=== PATIENT | male | born 1985 | race Caucasian/White ===

== ENCOUNTER → 2017-01-03 | Outpatient (CLI) | payer MEDICAID ==
[~2017-01-03] MED LIST: Albuterol 0.083% 2.5 MG/3 ML Neb Soln NEB ONE
== END ==
LOC: MW.RT 09:46
PROVIDERS: ATTEND Surgery
DX: M79.641 Pain in right hand (principal); R05 Cough
CPT/HCPCS: 94060

== ENCOUNTER 2017-03-13 00:38 | Emergency (ER) | payer MEDICAID, OTHER ==
--- NOTE | 2017-03-13 00:59 | EDM.PDOC ---
ED HPI SEIZURE COMPLAINT - General Chief Complaint: Neurological Problem Stated Complaint: AMBULANCE Time Seen by Provider: 03/13/17 00:46 Source of Information: Reports: Patient History Limitations: Reports: No limitations - History of Present Illness INITIAL COMMENTS - FREE TEXT/NARRATIVE: HISTORY AND PHYSICAL: History of present illness: [31-year-old male with a history of seizure disorder but he is noncompliant with seizure meds because he says they "don't work for me. "He has refused multiple seizure medicines from his Dr. and insists on taking none. Patient has seizures every month or 2. He had a seizure typical for him tonight which was witnessed per police so he was brought to the emergency department for evaluation the issue is asymptomatic. He felt fatigued afterwards but now feels baseline. No complaints no headache or stiff neck no fever or infectious prodrome.] Review of systems: As per history of present illness and below otherwise all systems reviewed and negative. Past medical history: As per history of present illness and as reviewed below otherwise noncontributory. Surgical history: As per history of present illness and as reviewed below otherwise noncontributory. Social history: No reported history of drug or alcohol abuse. Family history: As per history of present illness and as reviewed below otherwise noncontributory. Physical exam: Well-appearing patient in no acute distress nonfocal neurologic exam supple neck alert vigorous and a probe HEENT: Atraumatic, normocephalic, pupils reactive, negative for conjunctival pallor or scleral icterus, mucous membranes moist, throat clear, neck supple, nontender, trachea midline. Lungs: Clear to auscultation, breath sounds equal bilaterally, chest nontender. Heart: S1S2, regular, negative for clicks, rubs, or JVD. Abdomen: Soft, nondistended, nontender. Negative for masses or hepatosplenomegaly. Negative for costovertebral tenderness. Pelvis: Stable nontender. Genitourinary: Deferred. Rectal: Deferred. Extremities: Atraumatic, negative for cords or calf pain. Neurovascular unremarkable. Neuro: Awake, alert, oriented. Cranial nerves II through XII unremarkable. Cerebellum unremarkable. Motor and sensory unremarkable throughout. Exam nonfocal. Diagnostics: [Not indicated] Therapeutics: [Not indicated] Impression: [Seizure] Plan: [Patient with known seizure disorder now status post seizure typical for him postictal state resolved patient asymptomatic no headache or complaint of pain nothing atypical about this seizure or presentation for this patient. No further workup or treatment indicated. Patient agrees with outpatient followup and strict return precautions given] Definitive disposition and diagnosis as appropriate pending reevaluation and review of above. - Related Data Allergies/ADRs: Allergies Allergy/AdvReac Type Severity Reaction Status Date / Time Penicillins Allergy Cannot Verified 03/13/17 00:40 Remember Sulfa (Sulfonamide Allergy Hives Verified 03/13/17 00:40 Antibiotics) Home Meds: Home Meds Albuterol [Ventolin HFA] 03/13/17 [History] Past Medical History - Past Health History Medical/Surgical History: Denies Medical/Surgical History HEENT History: Reports: None Cardiovascular History: Reports: None Respiratory History: Reports: Asthma, Other (see below) Other Respiratory History: bronchitis Gastrointestinal History: Reports: None Genitourinary History: Reports: None Musculoskeletal History: Reports: None Neurological History: Reports: Seizure, Other (see below) Other Neuro History: Stroke in 2012 Psychiatric History: Reports: None Endocrine/Metabolic History: Reports: None Hematologic History: Reports: None Immunologic History: Reports: None Oncologic (Cancer) History: Reports: None Dermatologic History: Reports: None - Infectious Disease History Infectious Disease History: Reports: Chicken pox - Past Surgical History Head Surgeries/Procedures: Reports: None HEENT Surgical History: Reports: None Cardiovascular Surgical History: Reports: None Respiratory Surgical History: Reports: None GI Surgical History: Reports: None Male Surgical History: Reports: None Endocrine Surgical History: Reports: None Neurological Surgical History: Reports: None Musculoskeletal Surgical History: Reports: Other (see below) Other Musculoskeletal Surgeries/Procedures:: wrist surgery Dermatological Surgical History: Reports: None Social & Family History - Family History Family Medical History: Noncontributory - Tobacco Use Smoking Status *Q: Former Smoker Years of Tobacco use: 15 Packs/Tins Daily: 0.5 Used Tobacco, but Quit: Yes Month Tobacco Last Used: 01/2017 - Caffeine Use Caffeine Use: Reports: None - Alcohol Use Days Per Week of Alcohol Use: 0 - Recreational Drug Use Recreational Drug Use: No Drug Use in Last 12 Months: Yes Recreational Drug Type: Reports: Heroin, Marijuana/Hashish Recreational Drug Use Frequency: Weekly ED ROS GENERAL - Review of Systems Review Of Systems: See Below (History of present illness) - Physical Exam Exam: See Below (History of present illness) Course - Vital Signs Last Recorded V/S: Last Vital Signs Temp 36.8 C 03/13/17 00:58 Pulse 82 03/13/17 00:58 Resp 19 03/13/17 00:58 BP 107/68 03/13/17 00:58 Pulse Ox 98 03/13/17 00:58 Departure - Departure Time of Disposition: 00:57 Disposition: Home, Self-Care 01 Condition: good Clinical Impression: Seizure Instructions: Epilepsy, [id number] Forms: ED Department Discharge Additional Instructions: You had a seizure. You have a known seizure disorder. Your exam is normal and your vital signs are unremarkable. Rest drink plenty of fluids and followup with your Dr. tomorrow for reevaluation and this to discuss why you have refused seizure medicines up until this point and whether you might consider a different seizure medicine the previously been prescribed. Return for new severe or worsening symptoms
[2017-03-13 01:00] VITALS: BP 107/68
== END 2017-03-13 01:25 | disposition home or self-care (01) ==
LOC: MW.ED 00:38
DX: G40.909 Epilepsy, unspecified, not intractable, without status epilepticus (principal); J45.909 Unspecified asthma, uncomplicated; Z88.0 Allergy status to penicillin; Z88.2 Allergy status to sulfonamides; Z87.891 Personal history of nicotine dependence
CPT/HCPCS: 99284

== ENCOUNTER 2017-06-07 07:10 | Emergency (ER) | payer MEDICAID ==
[2017-06-07] MEDS ORDERED: Sodium Chloride 0.9% 1,000 ML IV ONE (07:38)
--- NOTE | 2017-06-07 07:46 | EDM.PDOC ---
ED HPI GENERAL MEDICAL PROBLEM - General Chief Complaint: Neurological Problem Stated Complaint: SEIZURE Time Seen by Provider: 06/07/17 07:23 Source of Information: Reports: Patient History Limitations: Reports: No Limitations - History of Present Illness INITIAL COMMENTS - FREE TEXT/NARRATIVE: HISTORY AND PHYSICAL: History of present illness: [31-year-old male with a past medical history of known seizure disorder now presents emergency department after witnessed generalized tonic-clonic seizure with loss of consciousness. Patient's significant other recently had a baby and is in the OB unit. Patient was playing on a couch had this seizure activity and fell off to the ground. Unclear if he struck his head. Patient is awake and verbally communicative with no complaints of pain at this time. He denies recent illness fevers chills sweats or shaking chills. Patient states he does not use drugs or alcohol and does not take any benzodiazepines as a prescription he has never been medicated for seizures. Patient did not bite his tongue or lose control of his bowel or bladder. Review of systems: As per history of present illness and below otherwise all systems reviewed and negative. Past medical history: As per history of present illness and as reviewed below otherwise noncontributory. Surgical history: As per history of present illness and as reviewed below otherwise noncontributory. Social history: No reported history of drug or alcohol abuse. Family history: As per history of present illness and as reviewed below otherwise noncontributory. Physical exam: Fatigued appearing male presentation clinically consistent with his reported postictal state of 10-15 minutes status post seizure. He is awake verbal and communicative eye opening to verbal at which point patient can speak and follow commands. He denies any pain and reports she's had no recent illness. HEENT: Atraumatic, normocephalic, pupils reactive, negative for conjunctival pallor or scleral icterus, mucous membranes moist, throat clear, neck supple, nontender, trachea midline. Lungs: Clear to auscultation, breath sounds equal bilaterally, chest nontender. Heart: S1S2, regular, negative for clicks, rubs, or JVD. Abdomen: Soft, nondistended, nontender. Negative for masses or hepatosplenomegaly. Negative for costovertebral tenderness. Pelvis: Stable nontender. Genitourinary: Deferred. Rectal: Deferred. Extremities: Atraumatic, negative for cords or calf pain. Neurovascular unremarkable. Neuro: Awake, alert, oriented. Cranial nerves II through XII unremarkable. Cerebellum unremarkable. Motor and sensory unremarkable throughout. Exam nonfocal. Diagnostics: [CT of the head] Basic metabolic panel pending Therapeutics: [IV fluids administered] Impression: [Seizure] Plan: [Signs and symptoms consistent with seizure activity typical for this patient. He has seizure every few months or so for which he is not medicated. Denies drugs or alcohol. No recent trauma. CT of the head ordered as is unclear if patient struck his head when he fell to the floor. Nonfocal neurologic exam. Vital signs unremarkable. Will hydrate check BMP and CT of the head if unremarkable anticipate outpatient follow-up when patient's postictal state has resolved patient and significant other agree with outpatient follow-up and strict return precautions will be given] Patient's postictal state completely resolved on reevaluation. His significant other is present at the bedside. Both of them agree to refuse IV fluids laboratory workup and CT of the head is they don't think it's clinically necessary. Patient is asymptomatic feels baseline and will sign out AGAINST MEDICAL ADVICE. They're aware of the risks including or permanent disability and will return any time if they so desire for further workup and treatment Definitive disposition and diagnosis as appropriate pending reevaluation and review of above. Treatments SUPERVISOR TITLE: Reports: Other (see below) Other Treatments SUPERVISOR TITLE: seizure precautions - Related Data Allergies Allergy/AdvReac Type Severity Reaction Status Date / Time Penicillins Allergy Cannot Verified 06/07/17 07:25 Remember Sulfa (Sulfonamide Allergy Hives Verified 06/07/17 07:25 Antibiotics) Home Meds: Home Meds Albuterol [Ventolin HFA] 03/13/17 [History] Past Medical History - Past Health History Medical/Surgical History: Denies Medical/Surgical History HEENT History: Reports: None Cardiovascular History: Reports: None Respiratory History: Reports: Asthma, Other (See Below) Other Respiratory History: bronchitis Gastrointestinal History: Reports: None Genitourinary History: Reports: None Musculoskeletal History: Reports: None Neurological History: Reports: Seizure, Other (See Below) Other Neuro History: Stroke in 2012 Psychiatric History: Reports: None Endocrine/Metabolic History: Reports: None Hematologic History: Reports: None Immunologic History: Reports: None Oncologic (Cancer) History: Reports: None Dermatologic History: Reports: None - Infectious Disease History Infectious Disease History: Reports: Chicken Pox - Past Surgical History Head Surgeries/Procedures: Reports: None HEENT Surgical History: Reports: None Cardiovascular Surgical History: Reports: None GI Surgical History: Reports: None Male Surgical History: Reports: None Endocrine Surgical History: Reports: None Musculoskeletal Surgical History: Reports: Other (See Below) Dermatological Surgical History: Reports: None Social & Family History - Family History Family Medical History: Noncontributory - Tobacco Use Smoking Status *Q: Current Every Day Smoker Years of Tobacco use: 15 Packs/Tins Daily: 1 Used Tobacco, but Quit: Yes Month Tobacco Last Used: 01/2017 - Caffeine Use Caffeine Use: Reports: None - Alcohol Use Days Per Week of Alcohol Use: 0 - Recreational Drug Use Recreational Drug Use: No Drug Use in Last 12 Months: Yes Recreational Drug Type: Reports: Heroin, Marijuana/Hashish Recreational Drug Use Frequency: Weekly ED ROS GENERAL - Review of Systems Review Of Systems: See Below (History of present illness) ED EXAM, GENERAL - Physical Exam Exam: See Below (History of present illness) Course - Vital Signs Last Recorded V/S: Last Vital Signs Temp 36.1 C 06/07/17 07:14 Pulse 83 06/07/17 08:28 Resp 20 06/07/17 08:28 BP 109/72 06/07/17 08:28 Pulse Ox 100 06/07/17 08:28 - Orders/Labs/Meds Orders: Active Orders 24 hr Category Date Time Status EKG Documentation Completion [RC] STAT Care 06/07/17 08:03 Active Head wo Cont [CT] Stat Exams 06/07/17 07:38 Ordered Meds: Medications Discontinued Medications Generic Name Dose Route Start Last Admin Trade Name Angela PRN Reason Stop Dose Admin Sodium Chloride 1,000 mls @ 999 mls/hr 06/07/17 07:38 06/07/17 07:45 Normal Saline IV 06/07/17 08:38 999 mls/hr STAT ONE Administration Departure - Departure Time of Disposition: 08:41 Disposition: Home, Self-Care 01 Condition: Good Clinical Impression: Seizure - Discharge Information Instructions: Seizure, Adult, [id number] Referrals: PCP,None [Primary Care Provider] - Forms: ED Department Discharge Additional Instructions: You had a seizure today. It was unclear whether you bumped her head falling off the couch. You have refused a CAT scan of your head to rule out fracture or intracranial injury. As such we are unable to verify that you have no brain injury, intracranial bleeding, or skull fracture as you are a competent alert person it is always your choice to refuse care were leaving AGAINST MEDICAL ADVICE however the aware if he did have bleeding inside her brain or brain injury could result in or permanent disability You have refused lab work and IV fluids as well. Follow-up with your today for reevaluation and to discuss at what point seizure medication might be indicated. rest and drink plenty of fluids and return immediately if you change your mind and desire further workup or if you have any other concerns - My Orders Last 24 Hours: My Active Orders 06/07/17 07:38 Head wo Cont [CT] Stat 06/07/17 08:03 EKG Documentation Completion [RC] STAT - Assessment/Plan Last 24 Hours: My Active Orders 06/07/17 07:38 Head wo Cont [CT] Stat 06/07/17 08:03 EKG Documentation Completion [RC] STAT
[2017-06-07 08:33] VITALS: BP 109/72
== END 2017-06-07 08:10 | disposition home or self-care (01) ==
LOC: MW.ED 07:10
DX: G40.909 Epilepsy, unspecified, not intractable, without status epilepticus (principal); F17.210 Nicotine dependence, cigarettes, uncomplicated; J45.909 Unspecified asthma, uncomplicated; Z88.0 Allergy status to penicillin; Z88.2 Allergy status to sulfonamides
CPT/HCPCS: 36415; 99283; J7040; 93005

== ENCOUNTER 2018-02-09 08:31 | Emergency (ER) | payer MEDICAID ==
[2018-02-09 08:42] VITALS: BP 106/71
--- NOTE | 2018-02-09 09:00 | EDM.PDOC ---
ED HPI GENERAL MEDICAL PROBLEM - General Chief Complaint: ENT Problem Stated Complaint: L EYE SWOLLEN Time Seen by Provider: 02/09/18 08:42 Source of Information: Reports: Patient History Limitations: Reports: No Limitations - History of Present Illness INITIAL COMMENTS - FREE TEXT/NARRATIVE: History of present illness: []Patient started having redness and pain in his left eye yesterday. It was crusted shut this morning he says it hurts to the point where it's "killing me" . He's had no recent illnesses, fevers, cough, cold or exposures. Review of systems: As per history of present illness and below otherwise all systems reviewed and negative. Past medical history: As per history of present illness and as reviewed below otherwise noncontributory. Surgical history: As per history of present illness and as reviewed below otherwise noncontributory. Social history: No reported history of drug or alcohol abuse. Family history: As per history of present illness and as reviewed below otherwise noncontributory. Physical exam: General: Well developed, well nourished in NAD HEENT: Atraumatic, normocephalic, pupils reactive, conjunctiva erythematous, lower eyelid has a small stye or scleral icterus, mucous membranes moist, throat clear, neck supple, nontender, trachea midline. Lungs: Clear to auscultation, breath sounds equal bilaterally, chest nontender. Heart: S1S2, regular, negative for clicks, rubs, or JVD. Abdomen: Soft, nondistended, nontender. Negative for masses or hepatosplenomegaly. Negative for costovertebral tenderness. Pelvis: Stable nontender. Genitourinary: Deferred. Rectal: Deferred. Extremities: Atraumatic, negative for cords or calf pain. Neurovascular unremarkable. Neuro: Awake, alert, oriented. Cranial nerves II through XII unremarkable. Cerebellum unremarkable. Motor and sensory unremarkable throughout. Exam nonfocal. Diagnostics: [] Therapeutics: [] Impression: []Conjunctivitis left eye Plan: []Erythromycin ointment as directed follow-up with ophthalmology as needed Definitive disposition and diagnosis as appropriate pending reevaluation and review of above. Left Eye Pain Score (Numeric/FACES): 5 - Related Data Allergies Allergy/AdvReac Type Severity Reaction Status Date / Time Penicillins Allergy Cannot Verified 02/09/18 08:42 Remember Sulfa (Sulfonamide Allergy Hives Verified 02/09/18 08:42 Antibiotics) Home Meds: Home Meds Albuterol [Ventolin HFA] 2 puff INH ASDIRECTED PRN 03/13/17 [History] Erythromycin Base [Erythromycin 0.5% Ophth Oint] 1 applic OP Q4H #1 tube [Rx] Past Medical History - Past Health History Medical/Surgical History: Denies Medical/Surgical History HEENT History: Reports: None Cardiovascular History: Reports: None Respiratory History: Reports: Asthma, Other (See Below) Other Respiratory History: bronchitis Gastrointestinal History: Reports: None Genitourinary History: Reports: None Musculoskeletal History: Reports: None Neurological History: Reports: Seizure, Other (See Below) Other Neuro History: Stroke in 2012 Psychiatric History: Reports: None Endocrine/Metabolic History: Reports: None Hematologic History: Reports: None Immunologic History: Reports: None Oncologic (Cancer) History: Reports: None Dermatologic History: Reports: None - Infectious Disease History Infectious Disease History: Reports: Chicken Pox - Past Surgical History Head Surgeries/Procedures: Reports: None HEENT Surgical History: Reports: None Cardiovascular Surgical History: Reports: None GI Surgical History: Reports: None Male Surgical History: Reports: None Endocrine Surgical History: Reports: None Musculoskeletal Surgical History: Reports: Other (See Below) Dermatological Surgical History: Reports: None Social & Family History - Family History Family Medical History: Noncontributory - Tobacco Use Smoking Status *Q: Current Every Day Smoker Years of Tobacco use: 13 Packs/Tins Daily: 0.5 Used Tobacco, but Quit: Yes Month/Year Tobacco Last Used: 01/2017 - Caffeine Use Caffeine Use: Reports: Soda - Alcohol Use Days Per Week of Alcohol Use: 0 - Recreational Drug Use Recreational Drug Use: No Drug Use in Last 12 Months: Yes Recreational Drug Type: Reports: Heroin, Marijuana/Hashish Recreational Drug Use Frequency: Weekly ED ROS GENERAL - Review of Systems Review Of Systems: See Below (See history of present illness) ED EXAM GENERAL W FULL EYE - Physical Exam Exam: See Below (See history of present illness) Course - Vital Signs Last Recorded V/S: Last Vital Signs Temp 98.0 F 02/09/18 08:40 Pulse 94 02/09/18 08:40 Resp 18 02/09/18 08:40 BP 106/71 02/09/18 08:40 Pulse Ox Departure - Departure Time of Disposition: 08:59 Disposition: Home, Self-Care 01 Condition: Good Clinical Impression: Left conjunctivitis - Discharge Information Prescriptions: Erythromycin Base [Erythromycin 0.5% Ophth Oint] 1 applic OP Q4H #1 tube Referrals: PCP,None [Primary Care Provider] - Additional Instructions: The following information is given to patients seen in the emergency department who are being discharged to home. This information is to outline your options for follow-up care. We provide all patients seen in our emergency department with a follow-up referral. The need for follow-up, as well as the timing and circumstances, are variable depending upon the specifics of your emergency department visit. If you don't have a primary care physician on staff, we will provide you with a referral. We always advise you to contact your personal physician following an emergency department visit to inform them of the circumstance of the visit and for follow-up with them and/or the need for any referrals to a consulting specialist. The emergency department will also refer you to a specialist when appropriate. This referral assures that you have the opportunity for follow-up care with a specialist. All of these measure are taken in an effort to provide you with optimal care, which includes your follow-up. Under all circumstances we always encourage you to contact your private physician who remains a resource for coordinating your care. When calling for follow-up care, please make the office aware that this follow-up is from your recent emergency room visit. If for any reason you are refused follow-up, please contact the [facility] Emergency Department at and asked to speak to the emergency department charge nurse. Erythromycin as directed warm compresses to eye, follow-up with networks software consultant needed.
== END 2018-02-09 09:10 | disposition home or self-care (01) ==
LOC: MW.ED 08:31
DX: H10.9 Unspecified conjunctivitis (principal); Z88.2 Allergy status to sulfonamides; Z88.0 Allergy status to penicillin; Z87.891 Personal history of nicotine dependence
CPT/HCPCS: 99282

== ENCOUNTER 2018-03-08 14:08 | Emergency (ER) | payer MEDICAID ==
[2018-03-08] MEDS ORDERED: Albuterol/Ipratropium 3.0-0.5 MG/3 ML Neb Soln NEB ONE (14:37)
--- NOTE | 2018-03-08 14:37 | EDM.PDOC ---
ED HPI GENERAL MEDICAL PROBLEM - General Chief Complaint: Respiratory Problem Stated Complaint: COUGHING Time Seen by Provider: 03/08/18 14:31 Source of Information: Reports: Patient History Limitations: Reports: No Limitations - History of Present Illness INITIAL COMMENTS - FREE TEXT/NARRATIVE: HISTORY AND PHYSICAL: History of present illness: Patient is a 32-year-old male who presents to the emergency room today with complaints of throat irritation and cough. He is concerned that he may have been exposed to mold as he felt he could smell this in his apartment building. Is a daily smoker, but states "this isn't a smokers cough". He denies any fever , chills, chest pain or shortness of breath. Denies any abdominal pain, nausea, vomiting, diarrhea/constipation. Review of systems: As per history of present illness and below otherwise all systems reviewed and negative. Past medical history: As per history of present illness and as reviewed below otherwise noncontributory. Surgical history: As per history of present illness and as reviewed below otherwise noncontributory. Social history: No reported history of drug or alcohol abuse. Family history: As per history of present illness and as reviewed below otherwise noncontributory. Physical exam: General: Well developed and well-nourished 32-year-old male. Alert and oriented. Nontoxic appearing and in no acute distress. HEENT: Atraumatic, normocephalic, pupils equal and reactive bilaterally, negative for conjunctival pallor or scleral icterus, mucous membranes moist, throat clear, neck supple, nontender, trachea midline. No drooling or trismus noted. No meningeal signs Lungs: Fine inspiratory and expiratory wheezing noted to bilateral bases, breath sounds equal bilaterally, chest nontender. Dry persistent cough noted Heart: S1S2, regular rate and rhythm without overt murmur Abdomen: Soft, nondistended, nontender. Negative for masses or hepatosplenomegaly. Negative for costovertebral tenderness. Pelvis: Stable nontender. Genitourinary: Deferred. Rectal: Deferred. Skin: Intact, warm, dry. No lesions or rashes noted. Extremities: Atraumatic, negative for cords or calf pain. Neurovascular unremarkable. Neuro: Awake, alert, oriented. Cranial nerves II through XII unremarkable. Cerebellum unremarkable. Motor and sensory unremarkable throughout. Exam nonfocal. Notes: Due to the patient's smoking history and presentation I will treat him with Medrol Dosepak and Z-Gerber. Tessalon Perles as needed for. Encouraged him to quit smoking and follow up with the primary care provider. We discussed him talking with his landlord with the concerns of mold in his living situations. He voices understanding and is agreeable to plan of care. He denies any further questions at this time. Diagnostics: Chest x-ray Therapeutics: Aubrey Impression: Bronchitis Plan: 1. Please stop smoking. 2. Take your antibiotic as prescribed. Medrol Dosepak as prescribed. Tessalon Perles for cough, 1 tab up to 3 times daily as needed. 3. Please talk to your landlord about the concerns of mold being in your living environment. 4. Follow-up with your primary caregiver in the next 1-2 days. Return to the ED as needed and as discussed. Definitive disposition and diagnosis as appropriate pending reevaluation and review of above. Throat Pain Score (Numeric/FACES): 2 - Related Data Allergies Allergy/AdvReac Type Severity Reaction Status Date / Time Penicillins Allergy Cannot Verified 03/08/18 14:20 Remember Sulfa (Sulfonamide Allergy Hives Verified 03/08/18 14:20 Antibiotics) Home Meds: Home Meds Albuterol [Ventolin HFA] 2 puff INH ASDIRECTED PRN 03/13/17 [History] Past Medical History - Past Health History Medical/Surgical History: Denies Medical/Surgical History HEENT History: Reports: None Cardiovascular History: Reports: None Respiratory History: Reports: Asthma, Other (See Below) Other Respiratory History: bronchitis Gastrointestinal History: Reports: None Genitourinary History: Reports: None Musculoskeletal History: Reports: None Neurological History: Reports: Seizure, Other (See Below) Other Neuro History: Stroke in 2012 Psychiatric History: Reports: None Endocrine/Metabolic History: Reports: None Hematologic History: Reports: None Immunologic History: Reports: None Oncologic (Cancer) History: Reports: None Dermatologic History: Reports: None - Infectious Disease History Infectious Disease History: Reports: Chicken Pox - Past Surgical History Head Surgeries/Procedures: Reports: None HEENT Surgical History: Reports: None Cardiovascular Surgical History: Reports: None GI Surgical History: Reports: None Male Surgical History: Reports: None Endocrine Surgical History: Reports: None Musculoskeletal Surgical History: Reports: Other (See Below) Dermatological Surgical History: Reports: None Social & Family History - Family History Family Medical History: Noncontributory - Tobacco Use Smoking Status *Q: Current Every Day Smoker Years of Tobacco use: 10 Packs/Tins Daily: 1 Used Tobacco, but Quit: Yes Month/Year Tobacco Last Used: 01/2017 - Caffeine Use Caffeine Use: Reports: Soda - Alcohol Use Days Per Week of Alcohol Use: 0 - Recreational Drug Use Recreational Drug Use: No Drug Use in Last 12 Months: No Recreational Drug Type: Reports: Heroin, Marijuana/Hashish Recreational Drug Use Frequency: Weekly ED ROS GENERAL - Review of Systems Review Of Systems: ROS reveals no pertinent complaints other than HPI. ED EXAM, GENERAL - Physical Exam Exam: See Below (See dictation) Course - Vital Signs Last Recorded V/S: Last Vital Signs Temp 97.7 F 03/08/18 14:17 Pulse 101 H 03/08/18 14:17 Resp 18 03/08/18 14:17 BP 125/62 03/08/18 14:17 Pulse Ox 94 L 03/08/18 14:17 - Orders/Labs/Meds Orders: Active Orders 24 hr Category Date Time Status RT Aerosol Therapy [RC] ASDIRECTED Care 03/08/18 14:37 Active Chest 2V [CR] Stat Exams 03/08/18 14:32 Ordered Meds: Medications Discontinued Medications Generic Name Dose Route Start Last Admin Trade Name Erlinq PRN Reason Stop Dose Admin Albuterol/Ipratropium 3 ml 03/08/18 14:37 03/08/18 14:46 Duoneb 3.0-0.5 Mg/3 Ml NEB 03/08/18 14:38 3 ml ONETIME ONE Administration Departure - Departure Time of Disposition: 15:14 Disposition: Home, Self-Care 01 Clinical Impression: Bronchitis - Discharge Information Instructions: Acute Bronchitis, Adult, [id number] Referrals: PCP,None [Primary Care Provider] - Forms: ED Department Discharge Additional Instructions: The following information is given to patients seen in the emergency department who are being discharged to home. This information is to outline your options for follow-up care. We provide all patients seen in our emergency department with a follow-up referral. The need for follow-up, as well as the timing and circumstances, are variable depending upon the specifics of your emergency department visit. If you don't have a primary care physician on staff, we will provide you with a referral. We always advise you to contact your personal physician following an emergency department visit to inform them of the circumstance of the visit and for follow-up with them and/or the need for any referrals to a consulting specialist. The emergency department will also refer you to a specialist when appropriate. This referral assures that you have the opportunity for follow-up care with a specialist. All of these measure are taken in an effort to provide you with optimal care, which includes your follow-up. Under all circumstances we always encourage you to contact your private physician who remains a resource for coordinating your care. When calling for follow-up care, please make the office aware that this follow-up is from your recent emergency room visit. If for any reason you are refused follow-up, please contact the [facility] Emergency Department at and asked to speak to the emergency department charge nurse. [facility] [address] [place] [id number] 1. Please stop smoking. 2. Take your antibiotic as prescribed. Medrol Dosepak (steriod) as prescribed. Tessalon Perles for cough, 1 tab up to 3 times daily as needed. 3. Please talk to your landlord about the concerns of mold being in your living environment. 4. Follow-up with your primary caregiver in the next 1-2 days. Return to the ED as needed and as discussed. - My Orders Last 24 Hours: My Active Orders 03/08/18 14:32 Chest 2V [CR] Stat 03/08/18 14:37 RT Aerosol Therapy [RC] ASDIRECTED - Assessment/Plan Last 24 Hours: My Active Orders 03/08/18 14:32 Chest 2V [CR] Stat 03/08/18 14:37 RT Aerosol Therapy [RC] ASDIRECTED
[2018-03-08 15:25] VITALS: BP 109/57
--- NOTE | 2018-03-08 15:39 | CR ---
EXAMINATION: Two-view chest (PA and Lateral views). HISTORY: Shortness of breath. FINDINGS: The trachea is midline. The cardiomediastinal silhouette is within normal limits. No pulmonary infilt rates, effusions or pneumothorax. Stable pleural scarring within the right upper lobe. Osseous structures appear unremarkable. IMPRESSION: No acute cardiopulmonary process.
== END 2018-03-08 15:26 | disposition home or self-care (01) ==
LOC: MW.ED 14:08
DX: J40 Bronchitis, not specified as acute or chronic (principal); F17.210 Nicotine dependence, cigarettes, uncomplicated
CPT/HCPCS: 71046; 71046-26; 94640; 99283-25

== ENCOUNTER 2019-02-17 01:35 | Emergency (ER) | payer SELFPAY ==
[2019-02-17] MEDS ORDERED: Sodium Chloride 0.9% 2.5 ML Syringe FLUSH PRN (02:03)
[2019-02-17] MEDS ORDERED: Ondansetron 4 MG/2 ML SDV IVPUSH ONE (02:03)
[2019-02-17] MEDS ORDERED: Sodium Chloride 0.9% 10 ML Syringe FLUSH PRN (02:03)
[2019-02-17] MEDS ORDERED: Sodium Chloride 0.9% 1,000 ML IV ONE (02:03)
[2019-02-17] MEDS ORDERED: Lidocaine 1% with EPINEPHrine 1:100,000 20 ML MDV INJECT ONE (02:03)
[2019-02-17] MEDS ORDERED: Bacitracin Oint 1 GM U/D Packet TOP ONE (02:10)
[2019-02-17] MEDS ORDERED: Diphtheria,Pertussis(Acell),Tetanus Vaccine 0.5 ML Syringe IM ONE (02:10)
--- NOTE | 2019-02-17 02:10 | EDM.PDOC ---
ED HPI GENERAL MEDICAL PROBLEM - General Chief Complaint: Laceration Stated Complaint: AMB Time Seen by Provider: 02/17/19 01:51 - History of Present Illness INITIAL COMMENTS - FREE TEXT/NARRATIVE: HISTORY AND PHYSICAL: History of present illness: The patient is a 33-year-old male who presents via EMS after police were called because he was wandering and appeared intoxicated and had some abrasions and a cut to his left lower leg. On arrival the patient is yelling and vomiting and continues to have vomiting here. It looks like a mixture of food and a variety of different liquids and has a smell of liquor. We are unsure of the patient's last tetanus shot. Patient is not offering any history here. Patient is not currently under arrest and is maintaining his airway and moving all extremities. The patient's prior encounters here have been reviewed and do include visits for seizures medical clearance and drug use Review of systems: As per history of present illness and below otherwise all systems reviewed and negative. Past medical history: As per history of present illness and as reviewed below otherwise noncontributory. Surgical history: As per history of present illness and as reviewed below otherwise noncontributory. Social history: No reported history of drug or alcohol abuse. Family history: As per history of present illness and as reviewed below otherwise noncontributory. Physical exam: General: Well-developed well-nourished thin man who is intermittently vomiting on my evaluation and is moving all extremities. He is maintaining his airway. HEENT: Atraumatic, normocephalic, pupils reactive and mid range, negative for conjunctival pallor or scleral icterus, mucous membranes moist, throat clear, neck supple, nontender, trachea midline. There are no midline step-offs in his defects of the cervical spine and there is no evidence of any fascial defects soft tissue swelling or deformities appreciated Lungs: Clear to auscultation with slightly diminished breath sounds in the bases and poor effort on my exam, breath sounds equal bilaterally, chest nontender. There is no evidence of any defects deformities crepitus or soft tissue swelling of the chest wall Heart: S1S2, regular rhythm and subtly tachycardic rate on my evaluation but no overt murmurs Abdomen: Soft, nondistended, nontender. Negative for masses or hepatosplenomegaly. NABS. There is a linear superficial scratch seen at the left lower abdominal wall the age of which cannot be determined and there is no surrounding erythema or bleeding or swelling there is also some superficial scratches seen at the left flank area without surrounding soft tissue swelling defects or deformities. Pelvis: Stable nontender. Genitourinary: Deferred. Rectal: Deferred. Extremities: At the right posterior shoulder there is a circular abrasion seen without any soft tissue swelling or palpable defects in this region as well as a small area of abrasion at the top of the shoulder again without any palpable defects or deformities. There is a superficial scratch seen which is linear in character without surrounding erythema soft tissue swelling or bony deformities. There is a small contusion seen in the inner aspect of the right knee without any palpable bony deformities defects or soft tissue swelling. At the left anterior barksdale/tib-fib area there is a horizontal laceration to the subcutaneous tissue which measures 5 cm which is nonbleeding and there is no evidence of any surrounding soft tissue tenderness defects or deformities. The tib-fib of this leg are intact without defects or deformities Neurovascular unremarkable. Neuro: Awake and maintaining his airways and keeping his eyes open but he is not answering questions or following commands. Motor and sensory unremarkable throughout. Exam nonfocal. Back: There are no midline step-offs or defects or deformities of the thoracic or lumbar spine no posterior rib tenderness defects or deformities or crepitus and no posterior pelvic defects or deformities other than the skin changes as documented above Diagnostics: CT scan of the head accu check Therapeutics: IV fluids Zofran wound care of the left barksdale lidocaine with epinephrine Tdap Procedure note: After the wound was cleansed by nursing at the left anterior leg lidocaine with epinephrine was infused in a local fashion and the wound was explored for foreign bodies and none were appreciated. The wound was prepped and the wound was closed using a total number of #11 yeimi. The skin edges came together nicely. There were no complications and the patient tolerated the procedure well. Bacitracin and a dressing were applied by nursing Impression: Alcohol intoxication, multiple superficial contusions, left leg laceration Definitive disposition and diagnosis as appropriate pending reevaluation and review of above. left lower leg Pain Score (Numeric/FACES): 5 - Related Data Allergies Allergy/AdvReac Type Severity Reaction Status Date / Time Penicillins Allergy Cannot Verified 02/17/19 01:39 Remember Sulfa (Sulfonamide Allergy Hives Verified 02/17/19 01:39 Antibiotics) Home Meds: Home Meds Albuterol [Ventolin HFA] 2 puff INH ASDIRECTED PRN 03/13/17 [History] Past Medical History - Past Health History Medical/Surgical History: Denies Medical/Surgical History HEENT History: Reports: None Cardiovascular History: Reports: None Respiratory History: Reports: Asthma, Other (See Below) Other Respiratory History: bronchitis Gastrointestinal History: Reports: None Genitourinary History: Reports: None Musculoskeletal History: Reports: None Neurological History: Reports: Seizure, Other (See Below) Other Neuro History: Stroke in 2012 Psychiatric History: Reports: None Endocrine/Metabolic History: Reports: None Hematologic History: Reports: None Immunologic History: Reports: None Oncologic (Cancer) History: Reports: None Dermatologic History: Reports: None - Infectious Disease History Infectious Disease History: Reports: Chicken Pox - Past Surgical History Head Surgeries/Procedures: Reports: None HEENT Surgical History: Reports: None Cardiovascular Surgical History: Reports: None GI Surgical History: Reports: None Male Surgical History: Reports: None Endocrine Surgical History: Reports: None Musculoskeletal Surgical History: Reports: Other (See Below) Dermatological Surgical History: Reports: None Social & Family History - Family History Family Medical History: Noncontributory - Tobacco Use Smoking Status *Q: Unknown Ever Smoked - Caffeine Use Caffeine Use: Reports: Soda - Recreational Drug Use Recreational Drug Use: No ED ROS GENERAL - Review of Systems Review Of Systems: ROS reveals no pertinent complaints other than HPI. ED EXAM, SKIN/RASH Exam: See Below (See dictation) Course - Vital Signs Last Recorded V/S: Last Vital Signs Temp 36.7 C 02/17/19 04:23 Pulse 90 02/17/19 04:23 Resp 18 02/17/19 04:23 BP 80/43 L 02/17/19 04:23 Pulse Ox 93 L 02/17/19 04:23 - Orders/Labs/Meds Orders: Active Orders 24 hr Category Date Time Status Blood Glucose Check, Bedside [RC] ONETIME Care 02/17/19 02:17 Active Communication Order [RC] STAT Care 02/17/19 02:04 Active Vaccines to be Administered [RC] PER UNIT ROUTINE Care 02/17/19 02:10 Active Sodium Chloride 0.9% [Saline Flush] Med 02/17/19 02:03 Active 10 ml FLUSH ASDIRECTED PRN Sodium Chloride 0.9% [Saline Flush] Med 02/17/19 02:03 Active 2.5 ml FLUSH ASDIRECTED PRN Saline Lock Insert [OM.PC] Stat Oth 02/17/19 02:03 Ordered Medication Orders Sodium Chloride (Saline Flush) 10 ml FLUSH ASDIRECTED PRN PRN Reason: Keep Vein Open Sodium Chloride (Saline Flush) 2.5 ml FLUSH ASDIRECTED PRN PRN Reason: Keep Vein Open Meds: Medications Generic Name Dose Route Start Last Admin Trade Name Freq PRN Reason Stop Dose Admin Sodium Chloride 10 ml 02/17/19 02:03 Saline Flush FLUSH ASDIRECTED PRN Keep Vein Open Sodium Chloride 2.5 ml 02/17/19 02:03 Saline Flush FLUSH ASDIRECTED PRN Keep Vein Open Discontinued Medications Generic Name Dose Route Start Last Admin Trade Name Freq PRN Reason Stop Dose Admin Bacitracin 1 dose 02/17/19 02:10 02/17/19 02:25 Bacitracin Oint 1 Gm TOP 02/17/19 02:11 1 dose ONETIME ONE Administration Diphtheria/Tetanus/Acell Pertussis 0.5 ml 02/17/19 02:10 02/17/19 02:25 Adacel IM 02/17/19 02:11 Not Given .ONCE ONE Sodium Chloride 1,000 mls @ 999 mls/hr 02/17/19 02:03 02/17/19 02:22 Normal Saline IV 02/17/19 03:03 Infused STAT ONE Infusion Lidocaine/Epinephrine 20 ml 02/17/19 02:03 02/17/19 02:24 Xylocaine 1% With Epinephrine 1:100,000 INJECT 02/17/19 02:04 20 ml ONETIME ONE Administration Ondansetron HCl 4 mg 02/17/19 02:03 02/17/19 02:23 Zofran IVPUSH 02/17/19 02:04 4 mg ONETIME ONE Administration Departure - Departure Time of Disposition: 04:46 Disposition: Home, Self-Care 01 Condition: Good Clinical Impression: Multiple contusions Alcohol intoxication Qualifiers: Complication of substance-induced condition: uncomplicated Qualified Code(s): F10.920 - Alcohol use, unspecified with intoxication, uncomplicated Laceration of leg Qualifiers: Encounter type: initial encounter Laterality: left Qualified Code(s): S81.812A - Laceration without foreign body, left lower leg, initial encounter - Discharge Information Forms: ED Department Discharge Additional Instructions: The following information is given to patients seen in the emergency department who are being discharged to home. This information is to outline your options for follow-up care. We provide all patients seen in our emergency department with a follow-up referral. The need for follow-up, as well as the timing and circumstances, are variable depending upon the specifics of your emergency department visit. If you don't have a primary care physician on staff, we will provide you with a referral. We always advise you to contact your personal physician following an emergency department visit to inform them of the circumstance of the visit and for follow-up with them and/or the need for any referrals to a consulting specialist. The emergency department will also refer you to a specialist when appropriate. This referral assures that you have the opportunity for followup care with a specialist. All of these measure are taken in an effort to provide you with optimal care, which includes your followup. Under all circumstances we always encourage you to contact your private physician who remains a resource for coordinating your care. When calling for followup care, please make the office aware that this follow-up is from your recent emergency room visit. If for any reason you are refused follow-up, please contact the [facility] emergency department at and ask to speak to the emergency department charge nurse. [facility] Primary care- Internal Medicine and Family [address] [id number] Keep the wound clean and dry for the next 24 hours and then cleanse with mild soap and water pat dry and apply bacitracin or Neosporin. Stop the ointment after the 2 days. Yeimi should be removed in 7-10 days here in the ED or with your provider in the clinic. Push sips of fluids such as water Gatorade and clear liquids and eat a bland diet for the next 24 hours. Return to ER as needed and as discussed. These refrain from drinking alcohol - My Orders Last 24 Hours: My Active Orders 02/17/19 02:03 Sodium Chloride 0.9% [Saline Flush] 10 ml FLUSH ASDIRECTED PRN Sodium Chloride 0.9% [Saline Flush] 2.5 ml FLUSH ASDIRECTED PRN Saline Lock Insert [OM.PC] Stat 02/17/19 02:04 Communication Order [RC] STAT 02/17/19 02:10 Vaccines to be Administered [RC] PER UNIT ROUTINE 02/17/19 02:17 Blood Glucose Check, Bedside [RC] ONETIME - Assessment/Plan Last 24 Hours: My Active Orders 02/17/19 02:03 Sodium Chloride 0.9% [Saline Flush] 10 ml FLUSH ASDIRECTED PRN Sodium Chloride 0.9% [Saline Flush] 2.5 ml FLUSH ASDIRECTED PRN Saline Lock Insert [OM.PC] Stat 02/17/19 02:04 Communication Order [RC] STAT 02/17/19 02:10 Vaccines to be Administered [RC] PER UNIT ROUTINE 02/17/19 02:17 Blood Glucose Check, Bedside [RC] ONETIME
--- NOTE | 2019-02-17 04:44 | CT ---
INDICATION: Fall. Pain TECHNIQUE: CT head without contrast. COMPARISON: None available FINDINGS: The ventricles and sulci are within normal limits for the patient`s age. There is an area of encephalomalacia in the superior left frontal lobe consistent with an old infarct and adjacent gliosis, with ex vacuo dilatation of the anterior left frontal horn. There is no mass effect or midline shift. There is no loss of louise-white differentiation. There is no evidence of an acute intracranial hemorrhage. Nasal bone deformities could be chronic. Otherwise, no acute calvarial fracture is seen. The visualized paranasal sinuses and mastoid air cells are clear. The visualized orbits are within normal limits. The adenoids are enlarged. IMPRESSION: No evidence of an acute intracranial hemorrhage, mass effect or loss of louise-white differentiation. A chronic superior left frontal infarct. Nasal bone deformities could be chronic. Correlate clinically. Dictated by Octavio Quigley MD @ 02/17/2019 4:41:27 AM Please note that all CT scans at this facility use dose modulation, iterative reconstruction, and/or weight-based dosing when appropriate to reduce radiation dose to as low as reasonably achievable. Dictated by: Octavio Quigley MD @ 02/17/2019 04:41:33 (Electronically Signed)
[2019-02-17 05:29] VITALS: BP 91/55
== END 2019-02-17 05:25 | disposition home or self-care (01) ==
LOC: MW.ED 01:35
DX: S81.812A Laceration without foreign body, left lower leg, initial encounter (principal); F10.929 Alcohol use, unspecified with intoxication, unspecified; S80.01XA Contusion of right knee, initial encounter; S30.811A Abrasion of abdominal wall, initial encounter; S40.211A Abrasion of right shoulder, initial encounter; J45.909 Unspecified asthma, uncomplicated; Z23 Encounter for immunization; Z88.0 Allergy status to penicillin; Z88.2 Allergy status to sulfonamides; Z79.899 Other long term (current) drug therapy; X58.XXXA Exposure to other specified factors, initial encounter
CPT/HCPCS: 12002; 70450; 82962; 96361; 96374; 99284; J2405; J7040; 99283

== ENCOUNTER 2019-02-27 15:46 | Emergency (ER) | payer SELFPAY ==
[2019-02-27 15:57] VITALS: BP 110/59
== END 2019-02-27 15:58 | disposition home or self-care (01) ==
LOC: MW.ED 15:46
DX: Z48.02 Encounter for removal of sutures (principal)